=== PATIENT | female | born 1990 | race Two or more races ===

== ENCOUNTER 2023-05-03 18:48 | Emergency (ER) | payer OTHER ==
[~2023-05-03] VITALS: Ht 162.6 cm; Wt 81.6 kg
[2023-05-03 19:10] VITALS: BP 143/93; PULSE 73; RESP 17; TEMP 98; O2SAT 100
[2023-05-03 20:34] LABS: APPEARANCE,URINE CLEAR (CLEAR); BILIRUBIN,URINE NEGATIVE (NEGATIVE); BLOOD, URINE TRACE-I (NEGATIVE); COLOR,URINE YELLOW (YELLOW); LEUKOCYTE ESTERASE ,URINE NEGATIVE (NEGATIVE); NITRITE, URINE POSITIVE (NEGATIVE); PROTEIN,URINE NEGATIVE (NEGATIVE); UGLUCOSE NEGATIVE (NEGATIVE); UROBILINOGEN,URINE 0.2 EU/dL (0.2 - 1)
[2023-05-03 20:45] LABS: BACTERIA,URINE >30 (MANY) /HPF (None Seen); RBC,URINE 0-5 /HPF (0-5); SQUAMOUS EPITHELIAL CELL,UR 0-3 (FEW) /LPF (0-3 (FEW)); WBC,URINE 0-5 /HPF (0-5)
[2023-05-03] MEDS ORDERED: KETOROLAC 30 MG/ML VIAL IM ONE (20:55)
[2023-05-03] MEDS ORDERED: CEPH-588 PO (20:57)
[2023-05-03 22:02] VITALS: BP 143/93; PULSE 73; RESP 17; TEMP 98; O2SAT 100
== END 2023-05-03 22:02 | disposition home or self-care (01) ==
LOC: MED 18:48
DX: N39.0 Urinary tract infection, site not specified (principal); R11.2 Nausea with vomiting, unspecified; R68.83 Chills (without fever); Z79.899 Other long term (current) drug therapy
CPT/HCPCS: 81001; 87086; 96372; 99283; J1885